=== PATIENT | female | born 1965 | race Hispanic/Latino ===

== ENCOUNTER → 2018-03-16 | Outpatient (CLI) | payer BC | END | disposition home or self-care (01) | LOC: RAH 07:37 | PROVIDERS: ATTEND Internal Medicine Gastroenterology | DX: K76.0 Fatty (change of) liver, not elsewhere classified (principal); R10.12 Left upper quadrant pain | CPT/HCPCS: 76700 ==

== ENCOUNTER 2020-08-15 05:30 | Day surgery (SDC) | payer BC ==
[2020-08-11 15:55] LABS: BASOPHILS % (AUTO) 0.6 % (0.0-5.0); EOSINOPHILS % (AUTO) 1.1 % (0.0-8.0); HEMATOCRIT 46.7 % (36-48); LYMPHOCYTES % (AUTO) 25.6 % (21.0-51.0); MEAN CORPUSCULAR HEMOGLOBIN 28.9 pg (27.0-33.0); MEAN CORPUSCULAR HGB CONC 33.2 g/dL (32.0-36.0); MONOCYTES % (AUTO) 7.9 % (3.0-13.0); NEUTROPHILS % (AUTO) 64.4 % (40.0-77.0); PLATELET COUNT (AUTO) 310 K/uL (130-400); RED BLOOD CELL COUNT(AUTO) 5.37 MIL/uL (4.00-5.50); RED CELL DISTRIBUTION WIDTH 12.5 % (11.0-15.5); WHITE BLOOD COUNT (AUTO) 10.3 K/uL (4.8-10.8)
[2020-08-11 16:08] LABS: CREATININE 0.7 mg/dL (0.5-1.5); POTASSIUM 3.8 mmol/L (3.5-5.1)
[2020-08-11 16:15] VITALS: BP 144/72
[~2020-08-15] VITALS: Ht 154.9 cm; Wt 91.5 kg
[2020-08-15] VITALS (18 sets, daily range): BP systolic 102–122; BP diastolic 50–64
[~2020-08-15 05:30] MED LIST: AMLO-257 PO; ATOR10 PO; EMPA10TA PO; GLIM2TAB30 PO; LISI20TA24 PO; SITA100T12 PO
[2020-08-15] MEDS ORDERED: LACTATED RINGERS 1000ML 1,000 ML IV SCH (06:00)
[2020-08-15] MEDS ORDERED: LIDOCAINE PF 100MG/5ML (2%) SYRINGE 5ML ONE (10:27)
[2020-08-15] MEDS ORDERED: PROPOFOL 10 MG/ML 20ML VIAL IV ONE (10:27)
[2020-08-15] MEDS ORDERED: ROCURONIUM 10MG/1ML SYR 10 MG/ML ML ONE (10:27)
[2020-08-15] MEDS ORDERED: FENTANYL CITRATE PF 50 MCG/1 ML 2ML VIAL ONE ×2 (10:27→13:07)
[2020-08-15] MEDS ORDERED: SUCCINYLCHOLINE CHLORIDE 20 MG/ML 10 ML VIAL ONE (10:27)
[2020-08-15] MEDS ORDERED: EPHEDRINE SULFATE 50 MG/ML AMPULE ONE (11:58)
[2020-08-15] MEDS ORDERED: GLYCOPYRROLATE 1 MG/5 ML SYRINGE ONE (13:00)
[2020-08-15] MEDS ORDERED: NEOSTIGMINE 5MG/5ML SYR IV ONE (13:00)
[2020-08-15] MEDS ORDERED: MEPERIDINE-PF 25 MG/ML SYG ONE ×2 (13:02→13:58)
[2020-08-15] MEDS ORDERED: ONDANSETRON HCL 4 MG/2 ML VIAL ONE (13:02)
== END 2020-08-15 15:25 | disposition home or self-care (01) ==
LOC: DAH 05:30
PROVIDERS: ATTEND Obstetrics & Gynecology
DX: D27.1 Benign neoplasm of left ovary (principal); N83.8 Other noninflammatory disorders of ovary, fallopian tube and broad ligament; Z20.822 Contact with and (suspected) exposure to COVID-19; N73.6 Female pelvic peritoneal adhesions (postinfective); I10 Essential (primary) hypertension; F17.210 Nicotine dependence, cigarettes, uncomplicated; E11.9 Type 2 diabetes mellitus without complications; Z79.899 Other long term (current) drug therapy; Z90.710 Acquired absence of both cervix and uterus; Z82.49 Family history of ischemic heart disease and other diseases of the circulatory system
CPT/HCPCS: 36415 ×2; 58661; 80048; 82948 ×2; 85025; 86850 ×2; 86900 ×2; 86901 ×2; 93005; A4215 ×2; A4216; A4221; A4222; A4223 ×2; A4315; A4510; A4600; A4649 ×3; A4663; A4930 ×2; C1769 ×3; C9803; J0330; J2001; J2175 ×2; J2405; J2704; J2710; J3010 ×2; J3490 ×2; J7030; J7120; U0003